=== PATIENT | female | born 1980 | race Caucasian/White ===

== ENCOUNTER 2019-01-24 19:47 | Emergency (ER) | payer MEDICAID ==
[~2019-01-24] VITALS: Ht 157.5 cm; Wt 59.4 kg
[2019-01-24 19:54] VITALS: Ht 157.5 cm; Wt 59.4 kg
[2019-01-24 21:40] VITALS: BP 105/75
== END 2019-01-24 21:40 | disposition home or self-care (01) ==
LOC: ED 19:47
DX: S92.421A Displaced fracture of distal phalanx of right great toe, initial encounter for closed fracture (principal); F41.9 Anxiety disorder, unspecified; W22.8XXA Striking against or struck by other objects, initial encounter; Y93.89 Activity, other specified; Y92.89 Other specified places as the place of occurrence of the external cause; Y99.8 Other external cause status

== ENCOUNTER 2019-09-05 20:41 | Emergency (ER) | payer MEDICAID ==
[~2019-09-05] VITALS: Ht 157.5 cm; Wt 61.2 kg
[2019-09-05 20:46] VITALS: BP 113/47; Ht 157.5 cm; Wt 61.2 kg
== END 2019-09-05 23:23 | disposition home or self-care (01) ==
LOC: ED 20:41
DX: J22 Unspecified acute lower respiratory infection (principal); F17.200 Nicotine dependence, unspecified, uncomplicated; R51 Headache
CPT/HCPCS: 99406